=== PATIENT | male | born 1945 | race Caucasian/White ===

== ENCOUNTER → 2023-05-22 07:14 | Outpatient (REF) | payer MEDICARE, OTHER, SELFPAY | LOC: MRI 07:14 | PROVIDERS: ATTENDING PHYSICIAN Student in an Organized Health Care Education/Training Program; FAMILY PHYSICIAN Family Medicine | DX: M25.561 Pain in right knee (principal) | CPT/HCPCS: 73721 ==

== ENCOUNTER → 2023-05-28 11:49 | Outpatient (REF) | payer MEDICARE, OTHER, SELFPAY | LOC: PAVMRI 11:49 | PROVIDERS: ATTENDING PHYSICIAN Physician Assistant Surgical; FAMILY PHYSICIAN Family Medicine | DX: M54.12 Radiculopathy, cervical region (principal) | CPT/HCPCS: 72141 ==

== ENCOUNTER → 2023-06-03 10:42 | Outpatient (REF) | payer MEDICARE, OTHER, SELFPAY | LOC: HWRAD 10:42 | PROVIDERS: ATTENDING PHYSICIAN Family Medicine | DX: R91.1 Solitary pulmonary nodule (principal) | CPT/HCPCS: 71260; Q9967 ==

== ENCOUNTER 2023-07-28 11:59 | Day surgery (SDC) | payer MEDICARE, OTHER, SELFPAY ==
[2023-07-28] VITALS (7 sets, daily range): BP systolic 137–176; BP diastolic 82–99
--- NOTE | 2023-07-28 15:00 | ITS.CL.IMPLP ---
[employer] - Implant Loop
Implant Loop
Procedure Report:
LINQ IMPLANTED MONITOR REMOVAL
Date of Procedure: 07/28/23
Primary Care Provider: Dr. Georgia Bishop
PROCEDURES:
1. Removal of implanted loop recorder
INDICATION FOR PROCEDURE:
1. Loop Recorder at end of battery longevity
After informed consent was obtained,'time out' was called and confirmed, the patient was prepped and draped in a sterile fashion.
SEDATION: Via the anesthesia department with conscious sedation
Lidocaine with epi was used for local anesthesia. An incision was made along the prior incision and the Linq monitor was carefully dissected from the pocket. The pocket was liberally irrigated with antibiotic solution. The pocket was closed in
the typical fashion.
COMPLICATIONS:
None
CONCLUSIONS:
1. Removal of implanted loop recorder.
RECOMMENDATIONS:
Proceed to Linq implant
Copy to:
Dr. Georgia Bishop
--- NOTE | 2023-07-28 15:04 | ITS.CL.IMPLP ---
[employer] - Implant Loop
Implant Loop
Procedure Report:
Date of Procedure: 07/28/23
Primary Care Provider: Dr Georgia Bishop
Procedure: Insertable Loop Recorder Implantation
Indication:
Atrial fibrillation
Procedure:
The patient was brought to the procedure area in a fasting state. The anterior chest was prepped and draped in standard sterile fashion. The fourth intercostal space along the left sternal border was identified and this area was anesthetized with 10
mL of 1% lidocaine. Once the previously placed loop recorder was dissected out and removed, the loop recorder was loaded into the tunneling device. A tunnel was created in the subcutaneous tissue at a 45� angle along the coronal plane away from the
sternum and towards the left flank at the area of the prior device, but needed to be extended more distally. The tunneling device was inverted and the plunger was depressed, inserting the loop recorder into the subcutaneous space. The tunneling
device was removed. Manual pressure as well as 5-0 Biosyn absorbable stitch provided hemostasis. Adequate signal was confirmed. The estimated blood loss was < 1 cc. A clean dressing was placed over the wound.
There were no complications.
Implant:
[employer] Reveal LINQ I
Conclusion: Uncomplicated implantation of loop recorder.
Recommendation: Routine ILR care.
Copy: Dr Georgia Bishop
[2023-07-28] MEDS: CALAN 120 MG PO (16:05)
== END 2023-07-28 16:15 | disposition home or self-care (01) ==
LOC: CATH 11:59
PROVIDERS: ATTENDING PHYSICIAN Internal Medicine Cardiovascular Disease; FAMILY PHYSICIAN Family Medicine
DX: I48.0 Paroxysmal atrial fibrillation (principal); I48.3 Typical atrial flutter; I45.10 Unspecified right bundle-branch block; I10 Essential (primary) hypertension; I25.2 Old myocardial infarction; Z95.1 Presence of aortocoronary bypass graft; Z79.01 Long term (current) use of anticoagulants; Z09 Encounter for follow-up examination after completed treatment for conditions other than malignant neoplasm
CPT/HCPCS: 33285; 33286; C1764

== ENCOUNTER → 2024-04-10 12:14 | Outpatient (REF) | payer MEDICARE, OTHER, SELFPAY | LOC: MRI 3T 12:14 | PROVIDERS: ATTENDING PHYSICIAN Physician Assistant; FAMILY PHYSICIAN Family Medicine | DX: M25.562 Pain in left knee (principal) | CPT/HCPCS: 73721 ==

== ENCOUNTER 2024-07-01 09:13 | Inpatient (IN) | payer MEDICARE, OTHER, SELFPAY ==
[2024-06-18 10:57] LABS: Hematocrit 47.8 % (39.0-52.0); Hemoglobin 15.9 g/dL (13.0-18.0); Mean Corp Hgb Conc. 33.3 g/dL (33.0-37.0); Mean Corpuscular Hgb 29.6 pg (27.0-31.0); Mean Corpuscular Volume 88.8 fL (80.0-94.0); Mean Platelet Volume 9.5 fL (7.4-10.4); Platelet Count 240 10^3/uL (130-400); Red Blood Cell Count 5.38 10^6/uL (4.70-6.10); Red Cell Dist. Width 12.8 % (11.5-14.5); White Blood Cell Count 4.6 10^3/uL (4.8-10.8)
[2024-06-18 11:58] LABS: Glycohemoglobin (HgbA1c) 5.9 % (4.0-5.6)
[2024-06-18 12:01] LABS: ALT (SGPT) 45 U/L (0-50); AST (SGOT) 35 U/L (17-59); Albumin 4.2 g/dl (3.5-5.0); Alkaline Phosphatase 84 U/L (38-126); Blood Urea Nitrogen 32 mg/dl (9-20); Calcium 9.4 mg/dl (8.4-10.2); Carbon Dioxide 27 mmol/L (22-30); Chloride 102 mmol/L (98-107); Glucose 153 mg/dl (70-99); Potassium 4.4 mmol/L (3.5-5.1); Sodium 137 mmol/L (135-145); Total Bilirubin 1.2 mg/dl (0.2-1.3); Total Protein 6.3 g/dl (6.3-8.2); eGFR > 60.00
[2024-06-18 13:47] VITALS: BMI 27.0
[2024-06-22 09:01] VITALS: BMI 27.0
[2024-07-01] VITALS (12 sets, daily range): BP systolic 102–133; BP diastolic 63–82; PULSE 64; O2SAT 93; BMI 27.0
[2024-07-01] MEDS: TYLENOL 650 MG PO ×4 (09:00→20:00)
[2024-07-01] MEDS: CELEBREX 200 MG PO (09:00)
[2024-07-01] MEDS: NORMOSOL-R/PLASMALYTE-A 1000 IV ×2 (09:07→12:42)
--- NOTE | 2024-07-01 12:09 | W.PN.ORTHO ---
Today's Communication / Plan
-
D/c when clinically stable. Plan for early discharge 07/02/24.
Assessment
.
Distal Motor Intact: Yes
Dressing:
Clean, dry and intact.
Assessment:
L knee OA s/p L TKA w/ Dr Morris 07/01/24
DVT prophylaxis - Eliquis at modified dosing, b/l venous foot pumps
- Home dose of Eliquis to be resumed POD 3 if hemodynamically stable
HTN - + parameters - monitor BP
PAT with underlying A fib/typical A flutter, status post cardioversion, 04/2020, and PVI and A flutter ablation 06/2021
RBBB
PVCs and PACs with occasional palpitations
- Monitor on tele
- Continue Verapamil
- OAC as stated above
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
- IS
GERD - continue PPI therapy
Cervical stenosis with radiculopathy - add Gabapentin to accommodate for post-surgical pain
Hypercholesterolemia
Coronary artery disease/NSTEMI, 04/2015, status post CABG x3
Aortic atherosclerosis
Mild mitral regurgitation
Recent sinus infection, improved with Augmentin
Colon polyps
Diverticulosis
Hemorrhoids
Fatty liver disease
Raynaud's disease
Remote cluster headaches
Degenerative disc disease
Hypothyroidism
Prostate cancer, 1997, status post radical prostatectomy
Stress incontinence
Glaucoma
Prediabetes, A1c 5.9
Mild leukopenia
Remote history of tobacco abuse
The patient is an appropriate candidate for early d/c 07/02
Plan
.
Surgery / Date: L TKA w/ Dr Morris 07/01/24
DVT Prophylaxis: Other (Eliquis )
Activity:
Out of bed.
PT/OT
Discharge Plan: Home w/ Outpatient PT
Subjective
.
.:
Patient resting comfortably in PACU.
L knee pain minimal at present.
Feels overall well. Denies new significant complaints.
Vital Signs and Labs
.
Vital Signs and Labs:
Lab Results
06/18/24 09:37
06/18/24 09:37
Temp Pulse Resp BP Pulse Ox
97.2 F 59 16 113/67 94
07/01/24 11:05 07/01/24 12:00 07/01/24 12:00 07/01/24 12:00 07/01/24 12:00
Physical Exam
-
HEENT: No pallor, cyanosis, or jaundice. Throat clear.
NECK: Supple. No JVD.
RESPIRATORY: Lungs clear to auscultation.
CVS: S1, S2 normal. RRR.
ABDOMEN: Soft, non-tender. No distension.
EXTREMITIES: Strength equal, no calf pain with palpation/dorsiflexion. Calves soft.
CENTERLESS GRINDER: AOx3. No focal deficits. 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
[2024-07-01] MEDS: ROXICODONE 5 MG PO (12:12)
[2024-07-01] MEDS: PROTONIX 40 MG PO (14:02)
[2024-07-01] MEDS: SYNTHROID PO (14:02)
[2024-07-01] MEDS: ZETIA 10 MG PO (14:03)
--- NOTE | 2024-07-01 15:20 | CM ---
Reviewed the chart notes and spoke with the patient at the bedside. The patient resides with his spouse in a two story home with three steps to enter. The patient has a rolling walker, cane, shower chair, raised toilet seat, and shower rails. The
patient confirmed his pharmacy of choice is [facility]. [facility]. The patient has an appointment for outpatient therapy starting on Friday with [facility]. Spouse will provide transportation. CM continues to be available to
patient/family and is monitoring medical plan for needs at discharge.
Plan: Discharge to home when medically stable with outpatient physical therapy.
[2024-07-01] MEDS: ANCEF 5 IV (16:53)
[2024-07-01] MEDS: ROXICODONE 10 MG PO (16:54)
[2024-07-01] MEDS: ALPHAGAN P 0.15% EYE DROPS 1 DROP OPHTH ×2 (16:54→21:44)
[2024-07-01] MEDS: AZOPT 1% OPHTHALMIC SUSPENSION 1 DROP OPHTH ×2 (16:55→23:22)
[2024-07-01] MEDS: COLACE 100 MG PO (19:59)
[2024-07-01] MEDS: DETROL 1 MG PO (20:00)
[2024-07-01] MEDS: DECADRON 4 MG PO (20:00)
[2024-07-01] MEDS: SENOKOT 17.2 MG PO (20:00)
[2024-07-01] MEDS: BACTROBAN 2% OINTMENT 1 APPLIC NASAL (20:00)
[2024-07-01] MEDS: ELIQUIS 2.5 MG PO (20:03)
[2024-07-01] MEDS: NEURONTIN 200 MG PO (21:43)
[2024-07-01] MEDS: NORVASC 5 MG PO (21:44)
[2024-07-01] MEDS: NON-FORMULARY ITEM 1 DROP OPHTH (21:44)
[2024-07-01] MEDS: LIPITOR 80 MG PO (21:44)
[2024-07-02] MEDS: TYLENOL PO (00:13)
[2024-07-02] MEDS: ANCEF 5 IV (01:03)
[2024-07-02 03:20] VITALS: BP 135/80
[2024-07-02] MEDS: TYLENOL 650 MG PO ×2 (03:21→08:35)
[2024-07-02] MEDS: ROXICODONE 5 MG PO (06:25)
[2024-07-02] MEDS: SYNTHROID 100 MCG PO (06:25)
--- NOTE | 2024-07-02 07:28 | W.PN.ORTHO ---
Today's Communication / Plan
-
Plan for outpatient PT on Friday
Assessment
.
Distal Motor Intact: Yes
Dressing:
Clean, dry and intact.
Assessment:
Doing well s/p LTKR
Plan
.
Surgery / Date: L TKA w/ Dr Morris 07/01/24
DVT Prophylaxis: Aspirin
Activity:
Out of bed.
PT/OT
Discharge Plan: Home w/ Outpatient PT
Subjective
.
.:
Patient resting comfortably. Working on ROM exercises. Was OOB yesterday
Vital Signs and Labs
.
Vital Signs and Labs:
Lab Results
06/18/24 09:37
06/18/24 09:37
Temp Pulse Resp BP Pulse Ox
97.7 F 75 16 135/80 95
07/02/24 03:20 07/02/24 03:20 07/02/24 03:20 07/02/24 03:20 07/02/24 03:20
Non-invasive Hgb result: 13.1
Physical Exam
-
Pulm; nonlabored
CV: regular
LLE: dressing CDI. NVI distally. Calf soft. Able to fully extend and flex to 90 degrees
[2024-07-02 08:00] VITALS: BP 116/69
--- NOTE | 2024-07-02 08:20 | W.PN.ORTHO ---
Today's Communication / Plan
-
Await PT and OT recs.
D/c later this AM if remaining clinically stable.
Assessment
.
Distal Motor Intact: Yes
Dressing:
Scant areas of old bleeding along incision line.
Assessment:
L knee OA s/p L TKA w/ Dr Morris 07/01/24
DVT prophylaxis - Eliquis at modified dosing, b/l venous foot pumps
- Home dose of Eliquis to be resumed POD 3 since hemodynamically stable
HTN - + parameters - BPs stable
PAT with underlying A fib/typical A flutter, status post cardioversion, 04/2020, and PVI and A flutter ablation 06/2021
RBBB
PVCs and PACs with occasional palpitations
- Maintaining NSR/sinus jewel at times on tele
- Continue Verapamil
- OAC as stated above
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
- IS
GERD - continue PPI therapy
Cervical stenosis with radiculopathy - added Gabapentin HS to accommodate for post-surgical pain
Hypercholesterolemia
Coronary artery disease/NSTEMI, 04/2015, status post CABG x3
Aortic atherosclerosis
Mild mitral regurgitation
Recent sinus infection, improved with Augmentin
Colon polyps
Diverticulosis
Hemorrhoids
Fatty liver disease
Raynaud's disease
Remote cluster headaches
Degenerative disc disease
Hypothyroidism
Prostate cancer, 1997, status post radical prostatectomy
Stress incontinence
Glaucoma
Prediabetes, A1c 5.9
Mild leukopenia
Remote history of tobacco abuse
The patient is an appropriate candidate for early d/c 07/02
Plan
.
Surgery / Date: L TKA w/ Dr Morris 07/01/24
DVT Prophylaxis: Other (Eliquis )
Activity:
Out of bed.
PT/OT
Discharge Plan: Home w/ Outpatient PT
Subjective
.
.:
Patient resting comfortably in bed this AM.
L knee pain overall well tolerated w/ current pain meds.
Denies any new significant complaints. Feels well.
Eager for potential early d/c today.
Vital Signs and Labs
.
Vital Signs and Labs:
Lab Results
06/18/24 09:37
06/18/24 09:37
Temp Pulse Resp BP Pulse Ox
97.8 F 82 16 116/69 96
07/02/24 08:00 07/02/24 08:00 07/02/24 08:00 07/02/24 08:00 07/02/24 08:00
Non-invasive Hgb result: 13.1
Physical Exam
-
HEENT: No pallor, cyanosis, or jaundice. Throat clear.
NECK: Supple. No JVD.
RESPIRATORY: Lungs clear to auscultation.
CVS: S1, S2 normal. RRR.�
ABDOMEN: Soft, non-tender. No distension.
EXTREMITIES: Strength equal, no calf pain with palpation/dorsiflexion. Calves soft.
RIB BENDER: AOx3. No focal deficits. electric well logging operator grossly intact
--- NOTE | 2024-07-02 08:26 | W.DS.TRANS ---
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
-
Discharge Instructions:
Sleep Apnea Risk Intermediate
Discharge Diagnosis/Procedures L knee OA s/p L TKA w/ Dr Morris 07/01/24
Diet Regular
Activity As tolerated,With Walker
Driving Restrictions Not until seen by your Dr
Bathing Restrictions OK to Shower
Other Services PT
Wound Care Dressing to be removed 1 week post-surgery.
Cooper to be removed at 2 week follow-up with
surgeon's office.
Instructions:
Stand-Alone Forms: Total Hip/Knee Replacement D/C
Changes to Home Medications: Yes
Discharge Medications:
DC Medications w/original date entered in [facility]
ascorbic acid (vitamin C) 500 mg tablet (Vitamin C) 500 mg PO DAILY 09/29/19
apixaban 5 mg tablet (Eliquis) 5 mg PO BID 04/24/21
loratadine 10 mg tablet 10 mg PO DAILYPRN PRN allergies 06/12/21
verapamil 120 mg 24 hr capsule,extended release 120 mg PO DAILY 06/19/21
atorvastatin 80 mg tablet 80 mg PO HS 07/28/23
omeprazole 20 mg capsule,delayed release 20 mg PO DAILY 07/28/23
verapamil 40 mg tablet 40 mg PO DAILYPRN PRN AFIB 07/28/23
L.acidophilus-B.animalis-B.bifidum 25 billion cell-FOS 100 mg capsule (Probiotic Complex) 1 cap PO DAILY 06/11/24
bimatoprost 0.01 % eye drops (Lumigan) 1 drp ophthalmic (eye) QPM 06/11/24
brimonidine 0.15 % eye drops (Alphagan P) 1 drp ophthalmic (eye) TID 06/11/24
brinzolamide 1 % eye drops,suspension (Azopt) 1 drp ophthalmic (eye) TID 06/11/24
ezetimibe 10 mg tablet 10 mg PO DAILY 06/11/24
levothyroxine 100 mcg tablet 100 mcg PO DAILY 06/11/24
mjycnpfgarug-bjf-iamwc acid-vit K-lycop 400 mcg-20 mcg-370 mcg tablet (Men's 50 Plus Multivitamin) 1 tab PO DAILY 06/11/24
omega 8-tqd-ctm-fish oil 1,000 mg (120 mg-180 mg) capsule (Fish Oil) 1 cap PO DAILY 06/11/24
tolterodine 1 mg tablet 1 mg PO BID 06/11/24
mupirocin 2 % topical ointment 1 applic intranasal BID #1 tube 06/18/24
acetaminophen 500 mg tablet (Tylenol Extra Strength) 1,000 mg (2 x 500 mg) PO Q6H #60 tabs 07/01/24
amlodipine 5 mg tablet 5 mg PO HS #1 tab 07/01/24
apixaban 2.5 mg tablet (Eliquis) 2.5 mg PO BID #3 tabs 07/01/24
dexamethasone 4 mg tablet 4 mg PO BID Anti-inflammatory #5 tabs 07/01/24
docusate sodium 100 mg capsule 100 mg PO BID #30 caps 07/01/24
gabapentin 100 mg capsule 200 mg (2 x 100 mg) PO HS neuropathic pain/sleep #20 caps 07/01/24
ondansetron HCl 4 mg tablet 4 mg PO Q6H PRN nausea and vomiting #30 tabs 07/01/24
oxycodone 5 mg tablet 5 - 10 mg (1 - 2 x 5 mg) PO Q6H PRN moderate-severe pain #30 tabs 07/01/24
sennosides 8.6 mg tablet (Veronica-christiane) 17.2 mg (2 x 8.6 mg) PO BID #30 tabs 07/01/24
Home Medication Changes
acetaminophen 500 mg tablet (Tylenol Extra Strength) 1,000 mg (2 x 500 mg) PO Q6H #60 tabs 07/01/24
apixaban 2.5 mg tablet (Eliquis) 2.5 mg PO BID #3 tabs 07/01/24 - until POD 3
dexamethasone 4 mg tablet 4 mg PO BID Anti-inflammatory #5 tabs 07/01/24
docusate sodium 100 mg capsule 100 mg PO BID #30 caps 07/01/24
gabapentin 100 mg capsule 200 mg (2 x 100 mg) PO HS neuropathic pain/sleep #20 caps 07/01/24
ondansetron HCl 4 mg tablet 4 mg PO Q6H PRN nausea and vomiting #30 tabs 07/01/24
oxycodone 5 mg tablet 5 - 10 mg (1 - 2 x 5 mg) PO Q6H PRN moderate-severe pain #30 tabs 07/01/24
sennosides 8.6 mg tablet (Veronica-christiane) 17.2 mg (2 x 8.6 mg) PO BID #30 tabs 07/01/24
Pending Results: No
[2024-07-02] MEDS: DECADRON 4 MG PO (08:30)
[2024-07-02] MEDS: PROTONIX 40 MG PO (08:30)
[2024-07-02] MEDS: SENOKOT 17.2 MG PO (08:30)
[2024-07-02] MEDS: DETROL 1 MG PO (08:31)
[2024-07-02] MEDS: ZETIA 10 MG PO (08:31)
[2024-07-02] MEDS: CALAN EXTENDED RELEASE 120 MG PO (08:31)
[2024-07-02] MEDS: COLACE 100 MG PO (08:32)
[2024-07-02] MEDS: BACTROBAN 2% OINTMENT 1 APPLIC NASAL (08:32)
[2024-07-02] MEDS: ELIQUIS 2.5 MG PO (08:32)
[2024-07-02] MEDS: ALPHAGAN P 0.15% EYE DROPS 1 DROP OPHTH (08:37)
[2024-07-02] MEDS: AZOPT 1% OPHTHALMIC SUSPENSION 1 DROP OPHTH (08:37)
[2024-07-02 08:51] VITALS: BP 116/69; PULSE 80; O2SAT 96
--- NOTE | 2024-07-02 09:17 | CM ---
Reviewed the chart notes and spoke with the patient and spouse at the bedside. IMM reviewed. The patient is discharged to home today. Spouse to provide transportation home. CM continues to be available to patient/family and is monitoring medical
plan for needs at discharge.
Plan: Discharge to home with outpatient therapy to start on Friday.
[2024-07-02 09:21] VITALS: BP 109/65; PULSE 78
[2024-07-02 10:45] VITALS: BP 103/63
== END 2024-07-02 11:10 | disposition home or self-care (01) | DRG 470 ==
LOC: 2 SOUTH 09:13
PROVIDERS: ADMITTING PHYSICIAN Orthopaedic Surgery; FAMILY PHYSICIAN Family Medicine; REFERRING PHYSICIAN Internal Medicine Cardiovascular Disease
PROC: 0SRD0J9 Replacement of Left Knee Joint with Synthetic Substitute, Cemented, Open Approach (ICD-10-PCS; 2024-07-01)
DX: M17.12 Unilateral primary osteoarthritis, left knee (principal); I48.3 Typical atrial flutter; I47.19 Other supraventricular tachycardia; S83.289A Other tear of lateral meniscus, current injury, unspecified knee, initial encounter; X58.XXXA Exposure to other specified factors, initial encounter; I10 Essential (primary) hypertension; E78.00 Pure hypercholesterolemia, unspecified; I25.10 Atherosclerotic heart disease of native coronary artery without angina pectoris; I70.0 Atherosclerosis of aorta; I48.91 Unspecified atrial fibrillation; I45.10 Unspecified right bundle-branch block; I49.3 Ventricular premature depolarization; K21.9 Gastro-esophageal reflux disease without esophagitis; J45.909 Unspecified asthma, uncomplicated; J84.10 Pulmonary fibrosis, unspecified; K64.9 Unspecified hemorrhoids; K76.0 Fatty (change of) liver, not elsewhere classified; I73.00 Raynaud's syndrome without gangrene; G44.009 Cluster headache syndrome, unspecified, not intractable; M48.02 Spinal stenosis, cervical region; M54.12 Radiculopathy, cervical region; E03.9 Hypothyroidism, unspecified; N39.3 Stress incontinence (female) (male); H40.9 Unspecified glaucoma; R73.03 Prediabetes; D72.819 Decreased white blood cell count, unspecified; I25.2 Old myocardial infarction; Z95.1 Presence of aortocoronary bypass graft; Z86.0100 Personal history of colon polyps, unspecified; Z87.19 Personal history of other diseases of the digestive system; Z85.46 Personal history of malignant neoplasm of prostate; Z87.891 Personal history of nicotine dependence; Z90.79 Acquired absence of other genital organ(s); Z79.890 Hormone replacement therapy; Z79.01 Long term (current) use of anticoagulants; Z98.41 Cataract extraction status, right eye; Z98.42 Cataract extraction status, left eye
CPT/HCPCS: 36415; 73560; 80053; 83036; 85027; 87070; 97110; 97116; 97162; 97166; 97535; C1713; C1776